=== PATIENT | male | born 1960 | race Caucasian/White ===

== ENCOUNTER 2023-11-13 17:57 | Emergency (ER) | payer OTHER, SELFPAY ==
[2023-11-13 17:58] VITALS: BP 147/89
[2023-11-13 18:57] VITALS: BP 120/70
[2023-11-13 19:23] VITALS: BP 120/70
--- NOTE | 2023-11-13 23:03 | ED.GENMED ---
History of Present Illness
General
Chief Complaint: Visual Problem
Source: patient
Exam Limitations: none
Time Seen by Provider: 11/13/23 18:25
Nursing documentation reviewed up to this point in time: agreed with
Travel History
Have you had any contact with someone who has COVID-19?: No
Do you have any symptoms of coronavirus? Fever > 100 degrees, chills, cough, shortness of breath, sore throat, loss of taste or smell, muscle aches, or headache?: No
History of Present Illness
History of Present Illness:
Patient to ED wtih complaint of floater to his left eye. States approx 2 days ago he noticed flashing light to left eye. No further symptoms until today. States while riding his bike he noticed a floater to his left eye. Denies headache
dizziness, blurred vision. No prior history of same. Brought to ED by spouse for eval.
Past History
Past History
ED Past Medical History: Psychiatric
Social History
Personal:
Living: with family
Review of Systems
Review of Systems
Allergies reviewed?: Yes
All Other Systems: ROS reviewed and negative except as documented in HPI and ROS
Constitutional: Reports no symptoms
EENT: Reports other (floater left eye)
Respiratory: Reports no symptoms
Cardiac: Reports no symptoms
ABD/GI: Reports no symptoms
Musculoskeletal: Reports no symptoms
Skin: Reports no symptoms
Neurological: Reports no symptoms
Psychiatric: Reports no symptoms
Phy Exam
General Physical Exam
General Presentation: well appearing and no apparent distress
General age: appears stated age
General Skin: warm and dry
General Habitus: normal
General Mental: alert
Eye Exam
Eye Exam: PERRL, EOMI, conjunctiva normal, disc sharp and visual acuity normal
Neurological Exam
Neurological Exam: alert, oriented x3, CN II-XII intact, no motor deficits, no sensory deficits and normal gait
Musculoskeletal Exam
Musculoskeletal Exam: full ROM and neuro vasc intact
Skin Exam
Skin Exam: normal color, warm/dry and no rash
Psychiatric Exam
Psychiatric Exam: normal mood/affect
Course
Orders/Labs/Results
Orders:
Orders
11/13/23 18:20
Visual Acuity- Treatment ONCE
Vital Signs
Initial and Last Documented VS:
Initial Vital Signs
Temp Pulse Resp BP Pulse Ox
97.9 F 66 16 147/89 98
11/13/23 17:58 11/13/23 17:58 11/13/23 17:58 11/13/23 17:58 11/13/23 17:58
Last Documented Vital Signs
Temp Pulse Resp BP Pulse Ox
98.9 F 67 17 120/70 98
11/13/23 19:23 11/13/23 19:23 11/13/23 18:57 11/13/23 19:23 11/13/23 19:23
*Critical Care Note
Total Time (30-74mins, 75-104mins- exclusive of procedures): Not Applicable
Update Note
Update Note:
Dr. Black notified of patient status. Will follow up in office tomorrow. Patient is agreeable to plan.
ED Attending Note
-
Portions of this chart may have been created with voice recognition software.� Occasional wrong word or��sound alike� substitutions may have occurred due to the inherent limitations of voice recognition software.
Discharge Plan
Departure
Patient Disposition: Home (Routine Discharge)
Date of Disposition: 11/13/23
Time of Disposition: 18:57
Patient with high blood pressure during this ER visit?: No
Condition: Good
Covid-19: Not Applicable
Discharge Problem:
Floater, vitreous
Instructions: Floaters in the Eye
Prescriptions:
No Action
sertraline 100 MG tablet
100 mg PO HS
oxycodone-acetaminophen 5 MG/325 MG tablet
1 tab PO Q4HPRN PRN (Reason: pain) Qty: 12 0RF
Referrals:
Eveline Black MD [Active] - Tomorrow (Call the office after 8AM for your appointment time)
Activity Restrictions/Additional Instructions:
Follow up with ophthalmology in the AM. Please call the office after 8AM for your appointment time.
Interventions
Interventions:
*Risk Screen - Suicide Last Done: 11/13/23 19:23
*General Assessment Last Done: 11/13/23 18:30
*Neglect/Abuse Screening Last Done: 11/13/23 19:23
*Nursing Disposition Last Done: 11/13/23 19:23
ED- Neurological Assessment Last Done: 11/13/23 18:31
ED-EENT Assessment Last Done: 11/13/23 18:31
Discharge Date and Time
Discharge Date/Time: 11/13/23 19:24
Print Language: BELARUSIAN
== END 2023-11-13 19:24 | disposition home or self-care (01) ==
LOC: EMR 17:57
PROVIDERS: EMERGENCY PHYSICIAN Emergency Medicine; FAMILY PHYSICIAN Family Medicine
DX: H43.392 Other vitreous opacities, left eye (principal); Y93.55 Activity, bike riding
CPT/HCPCS: 99282